=== PATIENT | male | born 1945 ===

== ENCOUNTER 2018-05-06 17:37 | Emergency (ER) | payer MEDICAID ==
[2018-05-06 18:04] VITALS: RESP 20
[2018-05-06] MEDS ORDERED: Sodium Chloride 0.9% 1,000 ML IV STA (18:44)
--- NOTE | 2018-05-06 18:56 | ED PDOC ---
Arrival/HPI <Johnny Campbell - Last Filed: 05/06/18 22:12> - General Historian: Patient, Family (daughter translates) - History of Present Illness Time/Duration: < week Symptom Onset: Gradual Symptom Course: Improving Quality: Cramping Severity Level: 7 Activities at Onset: Rest Context: Home <Aaron Young - Last Filed: 05/06/18 22:24> - General Chief Complaint: GI Problem Time Seen by Provider: 05/06/18 17:53 - History of Present Illness Narrative History of Present Illness (Text): 05/06/18 18:52 CC: Diarrhea HPI: Mr. Osman is a 72 year old male with a past medical history of DM2, HTN, and BPH who presents with a 4 day history of diarrhea since Friday. Patient is here with daughter and , who help fill in the history. Patient started feeling abdominal pain on Friday evening after dinner of fish and vegetables, although daughter reports that patient has tolerated that meal many times before. Patient vomited once at that time - food, no blood. Patient reports ~8 bowel movements per day since then- nonbloody, watery, "smelly" and without pain. Patient reports loss of appetite. Patient reports last colonoscopy was roughly 10 years ago. Patient reports weakness, headaches, dizziness, and unintentional 5 pound weight loss over the past week. Patient denies vomiting, fevers chills, chest pain, shortness of breath, hematuria, sick contacts, and recent travel. Of note, patient reports having a 5 day history of self-resolved diarrhea 3 years ago and was told it was due to an unknown amoeba. PMHx: DM2, htn, bph shX: sHOULDER SURGERY All: NKDA Social: former tobacco smoker Meds: Flomax, Amlodipine, Atenolol, Metformin, Omeprazole Originally from [place] (Aaron Young) Past Medical History - Provider Review Nursing Documentation Reviewed: Yes - Infectious Disease Hx of Infectious Diseases: None - Cardiac Hx Hypotension: Yes - Pulmonary Hx Respiratory Disorders: No - Endocrine/Metabolic Hx Diabetes Mellitus Type 2: Yes - Psychiatric Hx Substance Use: No - Surgical History Hx Orthopedic Surgery: Yes - Anesthesia Hx Anesthesia: Yes Hx Anesthesia Reactions: No <Aaron Young - Last Filed: 05/06/18 22:24> Family/Social History - Physician Review Nursing Documentation Reviewed: Yes Family/Social History: Neoplasm/Cancer (dad had stomach CA, sister and mother had breast cancer) Smoking Status: Unknown If Ever Smoked Hx Alcohol Use: No Hx Substance Use: No <Aaron Young - Last Filed: 05/06/18 22:24> Allergies/Home Meds <Johnny Campbell - Last Filed: 05/06/18 22:12> <Aaron Young - Last Filed: 05/06/18 22:24> Allergies/Adverse Reactions: Allergies No Known Allergies Allergy (Verified 05/06/18 18:03) Home Medications: Home Meds Medication Instructions Recorded Confirmed Atenolol 125 mg PO DAILY 05/06/18 05/06/18 MetFORMIN [glucOPHAGE] 1,000 mg PO BID 05/06/18 05/06/18 Tamsulosin [Flomax] 0.4 mg PO DAILY 05/06/18 05/06/18 amLODIPine [Norvasc] 5 mg PO DAILY 05/06/18 05/06/18 Review of Systems - Physician Review All systems were reviewed & negative as marked: Yes - Review of Systems Constitutional: Normal Eyes: Normal ENT: Normal Respiratory: Normal Cardiovascular: Normal Gastrointestinal: Diarrhea, Nausea, Appetite Changes (poor oral intake), Anorexia. absent: Vomiting Genitourinary Male: Normal Musculoskeletal: Normal Skin: Normal Neurological: Headache, Dizziness Endocrine: Normal Hemo/Lymphatic: Normal Psychiatric: Normal <SalomónraúlAaron kuhn - Last Filed: 05/06/18 22:24> Physical Exam Vital Signs Reviewed: Yes Temperature: Afebrile Blood Pressure: Normal Pulse: Regular Respiratory Rate: Normal Appearance: Positive for: Well-Appearing, Non-Toxic, Comfortable Pain Distress: Mild Mental Status: Positive for: Alert and Oriented X 3 - Systems Exam Head: Present: Atraumatic, Normocephalic Pupils: Present: PERRL Extroacular Muscles: Present: EOMI Conjunctiva: Present: Normal Mouth: Present: Moist Mucous Membranes Respiratory/Chest: Present: Clear to Auscultation, Good Air Exchange. No: Respiratory Distress, Accessory Muscle Use Cardiovascular: Present: Regular Rate and Rhythm, Normal S1, S2. No: Murmurs, Irregular Rhythm Abdomen: No: Tenderness, Distention, Normal Bowel Sounds, Peritoneal Signs, Rebound, Guarding, Scars Rectal: Present: Normal Rectal Tone. No: Occult Blood, Rectal Tenderness, Gross Blood, Hemorrhoids Back: Present: Normal Inspection. No: CVA Tenderness Upper Extremity: Present: Normal Inspection. No: Edema Lower Extremity: Present: Normal Inspection. No: Edema Neurological: Present: GCS=15, CN II-XII Intact, Speech Normal Skin: Present: Warm, Dry, Normal Color. No: Rashes Psychiatric: Present: Alert, Oriented x 3, Normal Insight, Normal Concentration <Aaron Young - Last Filed: 05/06/18 22:24> Vital Signs Temp Pulse Resp BP Pulse Ox 05/06/18 21:59 97.7 F 60 20 123/67 96 05/06/18 17:58 99.1 F 68 20 129/69 97 Medical Decision Making - Lab Interpretations I have reviewed the lab results: Yes <Johnny Campbell - Last Filed: 05/06/18 22:12> - Lab Interpretations I have reviewed the lab results: Yes <Aaron Young - Last Filed: 05/06/18 22:24> ED Course and Treatment: 05/06/18 In agreement with resident note, which includes further HPI details. Patient was seen and evaluated with resident, came up with plan and treatment together. 05/06/18 19:52 Seen and examined with the resident. Our history and physical exam reveals an elderly gentleman whose daughter translates for him. There is a four-day history of diarrhea. There was some nausea and one episode of vomiting after the symptoms first began. The daughter reports that she cooked some fish for him and he became ill several hours later. She is fine. No travel. No fever or chills. He does not appear ill. His abdomen is soft and nontender. He has had a very poor by mouth intake. 05/06/18 19:54 EKG shows normal sinus rhythm rate approximately 60 with a right bundle branch block and no old available for comparison. (Johnny Campbell) 05/06/18 18:56 Impression: 72 year old male with DM2 and HTN who presents with 4 day history of watery diarrhea. Colitis vs IBS vs Viral vs amoeba vs c. diff Plan: CBC CMP Lipase c. diff NS 1 L bolus FOBT negative - 1861 10R 11-19 05/06/18 20:01 K 3.5. Repleted with 40 mEq of K-dur. Patient reports improvement. Will wait for completion of saline bolus. Patient unable to provide stool sample. 05/06/18 21:56 Saline bolus completed. Patient reports marked improvement. Patient denies urge to move his bowels. Patient's and family's questions regarding care and follow up were answered in full and to their satisfaction. Patient recommended to follow up with PCP within 1 week. Patient hemodynamically stable and ready for discharge. (Aaron Young) - Lab Interpretations Lab Results: 05/06/18 19:35 05/06/18 19:35 Lab Results 05/06/18 19:35: Sodium 138, Potassium 3.5 L, Chloride 96 L, Carbon Dioxide 30, Anion Gap 16, BUN 22 H, Creatinine 1.4, Est GFR ( Amer) > 60, Est GFR ( Non-Af Amer) 50, Random Glucose 229 H, Calcium 8.6, Total Bilirubin 1.4 H, AST 51, ALT 41, Alkaline Phosphatase 64, Total Protein 7.0, Albumin 3.9, Globulin 3.0, Albumin/Globulin Ratio 1.3, Lipase 312 H 05/06/18 19:35: WBC 4.3 L, RBC 4.52, Hgb 13.4 L, Hct 37.6 L, MCV 83.2, MCH 29.6 , MCHC 35.6, RDW 12.6, Plt Count 125, MPV 10.6, Gran % 64.1, Lymph % (Auto) 21.0 L, [place] % (Auto) 14.0 H, Eos % (Auto) 0.7 L, Baso % (Auto) 0.2, Gran # 2.75 , Lymph # (Auto) 0.9 L, [place] # (Auto) 0.6, Eos # (Auto) 0.0, Baso # (Auto) 0.01 - Medication Orders Current Medication Orders: Discontinued Medications Sodium Chloride (Sodium Chloride 0.9%) 1,000 mls @ 999 mls/hr IV .Q1H1M STA Stop: 05/06/18 19:44 Last Admin: 05/06/18 20:30 Dose: 999 mls/hr eMAR Start Stop Document 05/06/18 20:30 LA (Rec: 05/06/18 21:51 LA [id number]) Intravenous Solution Start Date 05/06/18 Start Time 20:30 End Date 05/06/18 End time 21:31 Total Infusion Time 61 Potassium Chloride (K-Dur 20 Meq Er Tab) 40 meq PO STAT STA Stop: 05/06/18 20:18 Last Admin: 05/06/18 21:53 Dose: 40 meq - Scribe Statement The provider has reviewed the documentation as recorded by the Scribe <Johnny Campbell - Last Filed: 05/06/18 22:12> <Aaron Young - Last Filed: 05/06/18 22:24> - Scribe Statement Marcus Sawant Provider Scribe Attestation: All medical record entries made by the Scribe were at my direction and personally dictated by me. I have reviewed the chart and agree that the record accurately reflects my personal performance of the history, physical exam, medical decision making, and the department course for this patient. I have also personally directed, reviewed, and agree with the discharge instructions and disposition. (Johnny Campbell) Disposition/Present on Arrival - Present on Arrival Any Indicators Present on Arrival: No History of DVT/PE: No History of Uncontrolled Diabetes: Yes Urinary Catheter: No History of Decub. Ulcer: No - Disposition Have Diagnosis and Disposition been Completed?: Yes Patient Plan: Discharge <Johnny Campbell - Last Filed: 05/06/18 22:12> - Present on Arrival Any Indicators Present on Arrival: No History of DVT/PE: No History of Uncontrolled Diabetes: No Urinary Catheter: No History of Decub. Ulcer: No History Surgical Site Infection Following: None - Disposition Have Diagnosis and Disposition been Completed?: Yes Disposition Time: 22:00 Patient Plan: Discharge <Aaron Young - Last Filed: 05/06/18 22:24> - Disposition Diagnosis: Diarrhea Disposition: HOME/ ROUTINE Patient Problems: Current Active Problems Problem Status Onset Diarrhea Acute Condition: IMPROVED Discharge Instructions (ExitCare): Diarrhea in Adolescents and Adults, Diarrhea and Traveler's Diarrhea, Adult (DC) Print Language: SERBIAN Additional Instructions: Please follow up within 1 week with your primary care doctor regarding your bowel habits and chronic medical conditions. Consume bland foods (crackers, breads, pretzels) and avoid novel types of foods until symptoms resolve. Consume plenty of water and electrolyte infused drinks (Gatorade, Powerade, vitamin water) for the next few days to replenish your electrolytes that may have been lost through your bowel movements. Should symptoms reoccur or worsen, please return to nearest emergency department. LORENA OSMAN, thank you for letting us take care of you today. Your provider was Janes Campbell MD and you were treated for DIARRHEA. The emergency medical care you received today was directed at your acute symptoms. If you were prescribed any medication, please fill it and take as directed. It may take several days for your symptoms to resolve. Return to the Emergency Department if your symptoms worsen, do not improve, or if you have any other problems. Please contact your doctor or call one of the physicians/clinics you have been referred to that are listed on the Patient Visit Information form that is included in your discharge packet. Bring any paperwork you were given at discharge with you along with any medications you are taking to your follow up visit. Our treatment cannot replace ongoing medical care by a primary care provider outside of the emergency department. Thank you for allowing the [facility] team to be part of your care today. If you had an X-Ray or CT scan: A Radiologist will review the ED reading if any change in treatment is needed we will contact you. If you had a blood, urine, or wound culture: It will take several days for the results, if any change in treatment is needed we will contact you. If you had an STI test: It will take 48 hours for the results. Please call after 1 week if you have not heard back. Referrals: Non [facility] Provider, [Non-Staff] - Follow up with primary Forms: [employer] ([place])
[2018-05-06 19:53] LABS: BASO # 0.01 K/mm3 (0.0-2.0); BASO % 0.2 % (0.0-3.0); EOS % 0.7 % (1.5-5.0); GRAN # 2.75 (1.4-6.5); GRAN % 64.1 % (50.0-68.0); HEMOGLOBIN 13.4 g/dL (14.0-18.0); LYMPH # 0.9 (1.2-3.4); MEAN CELL VOLUME 83.2 fl (80.0-105.0); MEAN CORPUSCULAR HEMOGLOBIN 29.6 pg (25.0-35.0); MEAN CORPUSCULAR HGB CONC 35.6 g/dl (31.0-37.0); MEAN PLATELET VOLUME 10.6 fl (7.0-11.0); MONO # 0.6 (0.1-0.6); RBC 4.52 10^6/uL (3.5-6.1); RED CELL DISTRIBUTION WIDTH 12.6 % (11.5-14.5); WHITE BLOOD COUNT 4.3 10^3/ul (4.5-11.0)
[2018-05-06 20:00] LABS: ALB/GLOB RATIO 1.3 (1.1-1.8); ALBUMIN 3.9 g/dL (3.0-4.8); ALT/SGPT 41 U/L (7-56); AST/SGOT 51 U/L (17-59); BLOOD UREA NITROGEN 22 mg/dL (7-21); CALCIUM 8.6 mg/dL (8.4-10.5); GFR NON-AFRICAN AMERICAN 50; LIPASE 312 U/L (23-300)
[2018-05-06] MEDS ORDERED: Potassium Chloride 20 mEq ER Tab PO STA (20:17)
[2018-05-06 22:00] VITALS: BP 123/67; PULSE 60; TEMP 97.7; O2SAT 96
--- NOTE | 2018-05-07 09:47 | CARD ---
APPROVED REPORT Date of service: 05/06/2018 EKG Measurement Heart [id number] <Conclusion> Normal sinus rhythm Right bundle branch block Left anterior fascicular block Bifascicular block Moderate voltage criteria for LVH, may be normal variant Abnormal ECG
== END 2018-05-06 22:33 | disposition home or self-care (01) ==
LOC: ED 17:37
DX: R19.7 Diarrhea, unspecified (principal); E11.9 Type 2 diabetes mellitus without complications; I10 Essential (primary) hypertension; N40.0 Benign prostatic hyperplasia without lower urinary tract symptoms
CPT/HCPCS: 80053; 83690; 85025; 93005; 96360; 99283; J7030